=== PATIENT | male | born 1965 | race Caucasian/White ===

== ENCOUNTER → 2022-03-19 | Outpatient (CLI) | payer BC ==
[~2022-03-19] MED LIST: FISH OIL 1,0001 EAC1 PO; HYDROCODON-ACE1 EA12 PO; LISINOPRIL10 MG PO; METAMUCIL PO; NORCO 7.5-3251 EACH PO; OMEPRAZOLE20 M1 PO; VITAMIN E400 UNI1 PO
== END ==
LOC: US 08:37
PROVIDERS: ATTEND Family Medicine
DX: R10.13 Epigastric pain (principal)
CPT/HCPCS: 76705